=== PATIENT | male | born 1980 | race American Indian/Alaskan Native ===

== ENCOUNTER 2017-08-05 14:51 | Emergency (ER) | payer SELFPAY ==
[2017-08-05 14:56] VITALS: BP 139/93
--- NOTE | 2017-08-05 16:32 | Emergency Department Report ---
Chief Complaint: Abdominal Pain Stated Complaint: GROIN PAIN Time Seen by Provider: 08/05/17 16:20 - HPI History of Present Illness: penile discharge and dysuria x 2 days white , thick, no fever no chills no n/v - ROS Review of Systems: all negative except dysuria and penile discharge - Exam Vital Signs: Vital Signs 08/05/17 14:53 Temperature 98.2 F Pulse Rate 72 Respiratory 16 Rate Blood Pressure 139/93 O2 Sat by Pulse 99 Oximetry Physical Exam: PE normal ,lungs clear, cv: s1 and s2, no mrg, abd soft nontender bs normal no rebound no bruit no hernia, gu: no penile rash no lesions no open sores ,nl lymph no discharge noted at this time. MSE screening note: Focused history and physical exam performed. Due to findings the following was advised that this is not an emergency condition or [place] it require emergency tx at this time pt will follow up with health department today or tomorrow for treatment, or agree to payment requirements with hospital pt registration. pt elects to follow up with health department for this non emergency condition pt is currently a/o x 3 with nad at this time, to home in stable condition. ED Disposition for MSE Disposition: Z-07 MED SCREENING EXAM-LEFT Is pt being admited?: No Does the pt Need Aspirin: No Condition: Good Referrals: PRIMARY CARE, [Primary Care Provider] - 3-5 Days Time of Disposition: 16:34
== END 2017-08-05 16:30 | disposition left against medical advice (07) ==
LOC: ED 14:51
DX: R10.2 Pelvic and perineal pain (principal); Z53.21 Procedure and treatment not carried out due to patient leaving prior to being seen by health care provider